=== PATIENT | female | born 1950 | race Caucasian/White ===

== ENCOUNTER → 2024-04-11 | Outpatient (CLI) | payer MEDICARE, MEDICAID, SELFPAY ==
[2024-04-11 16:59] LABS: Glucose Estimated Average 128 mg/dL (80-131); Hemoglobin A1C 6.1 % Hgb (4.8-6.0)
[2024-04-11 17:10] LABS: Anion Gap 11 (7-16); BUN/Creatinine Ratio 20 Ratio (12-20); Blood Urea Nitrogen 18 mg/dL (9-23); Calcium 9.7 mg/dL (8.3-10.6); Carbon Dioxide 27.9 mMol/L (20.0-31.0); Chloride 99 mMol/L (98-107); Creatinine (Component) 0.9 mg/dL (0.6-1.3); Glucose 127 mg/dL (74-106); Osmolality,Calculated 279 (275-295); Potassium 3.8 mMol/L (3.4-5.1); Sodium 138 mMol/L (136-145); eGFR > 60 See Note
== END | disposition home or self-care (01) ==
LOC: COPL 15:13
PROVIDERS: PCP Family Medicine; Referring Provider Family Medicine; Visit Provider Family Medicine
DX: E11.9 Type 2 diabetes mellitus without complications (principal); I10 Essential (primary) hypertension
CPT/HCPCS: 36415; 80048; 83036; 84443

== ENCOUNTER → 2024-08-01 | Outpatient (CLI) | payer OTHER, SELFPAY ==
--- NOTE | 2024-08-01 13:00 | XR_ITS ---
Examination: CT abdomen and pelvis without contrast. Coronal 3-D reconstructions. Sagittal 2-D reconstructions. Date and time of exam:August 01, 2024 1249 hours INDICATIONS: Infrarenal abdominal aortic aneurysm 4.3 cm mediolateral dimension on CT examination December 01, 2023 CTDI: vol (mGy): 13.7 DLP: (mGycm): 721 Technique: Axial images of the abdomen have been obtained, 3 mm slice thickness Intravenous contrast material has not been administered. Low dose protocols were performed. One or more of the following dose reduction techniques were used; automated exposure control, adjustment of the mA and/or KV according to patient size, use of iterative reconstruction technique. Findings: Liver irregular in contour no focal liver or splenic lesions No gallstones No pancreatic or adrenal mass No hydronephrosis Infrarenal abdominal aortic aneurysm, AP dimension 4.2 cm compared to 4.2 cm 12/01/2023 Transverse dimension 3.6 cm compared to 3.6 cm on the prior study No bowel obstruction Normal appendix No pelvic mass Bladder intact IMPRESSION: Stable infrarenal abdominal aortic aneurysm compared with December 01, 2023
== END | disposition home or self-care (01) ==
PROVIDERS: Referring Provider Student in an Organized Health Care Education/Training Program; Visit Provider Student in an Organized Health Care Education/Training Program
DX: I71.43 Infrarenal abdominal aortic aneurysm, without rupture (principal)
CPT/HCPCS: 74176

== ENCOUNTER → 2024-09-01 | Outpatient (CLI) | payer OTHER, MEDICAID, SELFPAY ==
[2024-09-01 13:02] LABS: Glucose Estimated Average 134 mg/dL (80-131); Hemoglobin A1C 6.3 % Hgb (4.8-6.0)
== END | disposition home or self-care (01) ==
LOC: COPL 11:34
PROVIDERS: PCP Family Medicine; Referring Provider Family Medicine; Visit Provider Family Medicine
DX: E11.65 Type 2 diabetes mellitus with hyperglycemia (principal)
CPT/HCPCS: 36415; 83036

== ENCOUNTER 2024-11-17 12:44 | Emergency (ER) | payer OTHER, SELFPAY ==
[2024-11-17 13:18] VITALS: BP 181/84; PULSE 100; RESP 24; TEMP 37.2; O2SAT 93
--- NOTE | 2024-11-17 13:29 | EDNOTE_ITS ---
ED Animal Bite RME/HPI General Chief Complaint: Animal Bite Stated Complaint: CAT BITE Time Seen by Provider: 11/17/24 12:52 Source: patient Arrival date/time: 11/17/24 12:44 73-year-old female with no known medical history presents to the emergency room with a chief complaint of redness warmth and swelling to her right hand after being bitten by her cat last night Mode of arrival: ambulatory Limitations: no limitations Related Data Home Medications ?Medication ?Instructions ?Recorded ?Confirmed metformin 1,000 mg tablet 1,000 mg PO QDAY 06/07/18 montelukast 10 mg tablet 10 mg PO QPM 06/07/18 pioglitazone 45 mg tablet 45 mg PO QDAY 06/07/1806/10 venlafaxine 150 mg 150 mg PO QDAY 06/07/1805/21 capsule,extended release 24 hr albuterol sulfate 90 mcg/actuation 2 puff inhalation Q 6H PRN 02/23/23 06/11/23 aerosol inhaler amlodipine 10 mg tablet 10 mg PO QDAY 02/23/2306/10 celecoxib 200 mg capsule 200 mg PO QDAY 02/23/2305/21 empagliflozin 25 mg tablet 25 mg PO QDAY 02/23/2305/21 (Jardiance) fluticasone fur. 200 mcg-umeclid 1 inh inhalation QDAY 02/23/23 06/11/23 62.5 mcg-vilant 25 mcg inhalat.powder (Trelegy Ellipta) solifenacin 5 mg tablet 5 mg PO QDAY 02/23/23 venlafaxine 150 mg tablet,extended 150 mg PO QDAY 08/1106/11/23 release 24 hr Previous Rx's ?Medication ?Instructions ?Recorded atorvastatin 20 mg tablet 20 mg PO HS #30 tabs 9 meloxicam 7.5 mg tablet 7.5 mg PO QDAY #45 tabs 05/21 05/15 amoxicillin 875 mg-potassium 1 tab PO BID 7 days #14 t abs 11/17/24 clavulanate 125 mg tablet Allergies Allergy/AdvReac Type Severity Reaction Status Date / Time latex Allergy Unknown Rash Verified 11/17/24 12:47 codeine AdvReac NAUSEATED/ Verified 11/17/24 12:47 VOMITING Review of Systems Review of Systems Systems Reviewed: All systems reviewed, normal except as documented Constitutional Constitutional: Reports system reviewed and no additional complaints, except as documented, Denies fatigue, Denies fever(s), Denies headache(s) and Denies weakness Eyes Eyes: Reports system reviewed and no additional complaints, except as documented, Denies blurry vision and Denies change in vision ENT Ears, Nose, Mouth, and Throat: Reports system reviewed and no additional complaints, except as documented, Denies otalgia, Denies headache(s), Denies nasal congestion, Denies throat swelling and Denies vertigo Cardiovascular Cardiovascular: Reports system reviewed and no additional complaints, except as documented, Denies chest pain, Denies dyspnea and Denies dyspnea on exertion Respiratory Respiratory: Reports system reviewed and no additional complaints, except as documented, Denies chest congestion, Denies cough, Denies dyspnea, Denies dyspnea on exertion and Denies wheezing Gastrointestinal Gastrointestinal: Reports system reviewed and no additional complaints, except as documented, Denies abdominal pain, Denies cramping, Denies nausea and Denies vomiting Genitourinary Genitourinary: Reports system reviewed and no additional complaints, except as documented Musculoskeletal Musculoskeletal: Reports system reviewed and no additional complaints, except as documented and Denies back pain Integumentary/Breasts Skin/Breast: Reports system reviewed and no additional complaints, except as documented, Reports erythema and Denies wounds Neurologic Neurologic: Reports system reviewed and no additional complaints, except as documented, Denies confusion, Denies headache(s), Denies lack of coordination, Denies vertigo and Denies weakness Psychiatric Psychiatric: Reports system reviewed and no additional complaints, except as documented, Denies anxiety, Denies confusion, Denies depression, Denies paranoia, Denies suicidal ideation and Denies tactile hallucinations Endocrine Endocrine: Reports system reviewed and no additional complaints, except as documented and Denies fatigue Hematologic/Lymphatic Hematologic/Lymphatic: Reports system reviewed and no additional complaints, except as documented and Denies lymphadenopathy Allergic/Immunologic Allergic/Immunologic: Reports system reviewed and no additional complaints, except as documented, Denies throat swelling, Denies urticaria and Denies wheezing ED Exam General Limitations: Present no limitations General appearance: Present alert and in no apparent distress Head Head exam: Present atraumatic Eye Eye exam: Present normal appearance, PERRL and EOMI ENT ENT exam: Present normal exam, normal oropharynx and mucous membranes moist Neck Neck exam: Present normal inspection, full ROM and trachea midline Chest Chest inspection: Present normal inspection and symmetric chest wall rise Respiratory Respiratory exam: Present normal lung sounds bilaterally Cardiovascular Cardiovascular exam: Present regular rate, normal rhythm and normal heart sounds Abdominal Exam Abdominal exam: Present soft and normal bowel sounds Extremities Exam Extremities exam: Present normal inspection and full ROM Expanded Upper Extremity Exam Shoulder exam: Present normal inspection Arm exam: Present normal inspection Elbow exam: Present normal inspection Forearm/Wrist exam: Present normal inspection Hand exam: Present tenderness, swelling and erythema Hand L/R back image: 2 1. Swelling, erythema, tenderness to the right. The findings are consistent with cellulitis secondary to a cat bite. The findings are mild to moderate Back Exam Back exam: Present normal inspection and full ROM Neurological Exam Neurological exam: Present alert, oriented X3 and CN II-XII intact Psychiatric Psychiatric exam: Present normal affect and normal mood Skin Skin exam: Present warm, dry, intact and normal color Course Quality Measures none Orders Category Date Time Status Ibuprofen Tab [Motrin Tab] Med 11/17/24 13:28 Discontinued 600 mg PO X1 ONE cefTRIAXone [Rocephin] 1,000 mg Med 11/17/24 13:26 Discontinued Lidocaine 1% 20 ml [Xylocaine 1% 20 ML] 2.1 ml IM X1 Vital Signs Vital signs: Vital Signs Temperature 99 F 11/17/24 13:18 Pulse Rate 100 11/17/24 13:18 Respiratory Rate 24 H 11/17/24 13:18 Blood Pressure 181/84 H 11/17/24 13:18 Pulse Oximetry (%) 93 L 11/17/24 13:18 Oxygen Delivery Method Room Air 11/17/24 13:18 Animal Bite MDM Narrative MDM Narrative:: 73-year-old female with no known medical history presents to the emergency room with a chief complaint of redness warmth and swelling to her right hand after being bitten by her cat last night Patient is hemodynamically stable and in no apparent distress. The patient is a be febrile not tachycardic not tachypneic Physical examination shows tenderness swelling and erythema to the right hand. The findings are consistent with mild cellulitis secondary to a cat bite. The patient is able to close her fist and is able to wiggle her fingers. There is active sensation in her hand and there is no swelling to the palm. A shot of antibiotics was given here at bedside and oral antibiotics are sent to the patient's pharmacy. Patient was educated to return to the emergency room for any evidence of worsening signs or symptoms Patient data External records reviewed:: [facility] previous records Clinical information provided by:: patient Social determinants that could affect healthcare access:: none Patient has the following chronic illnesses:: No chronic illness How is presenting disease/condition affected by chronic disease/condition?: no chronic disease Evaluation data The following diagnostics were reviewed and interpreted by me:: lab results and radiology exam(s) Lab and/or radiology exams considered but not ordered:: Labs and radiology exams considered in order Interpretation Summary: N/A Medications / Prescriptions Medications or Prescriptions considered but not ordered:: Medication given Medication administrations:: Medication Administration History Discontinued Medications Ceftriaxone Sodium 1,000 mg/ (Lidocaine HCl 2.1 ml) 0 mg IM X1 ONE Stop: 11/17/24 13:27 Last Admin: 11/17/24 14:04 Dose: 1,000 mg Documented By: Ibuprofen (Ibuprofen Tab 600 Mg Tablet) 600 mg PO X1 ONE Stop: 11/17/24 13:29 Last Admin: 11/17/24 14:03 Dose: 600 mg Documented By: Medication given Consultations Consultation(s) initiated? (list below): No Diagnosis Differential diagnosis animal bite: bite by animal, cat bite and dog bite Most likely diagnosis given after review of the tests above:: Cat bite Admission Indicated Admission indicated?: not indicated Admission Request Was there a request for admission?: No Disposition Plan Disposition Plan: Discharge Discharge Attestation Discharge Attestation: The patient and all family members were given an opportunity to ask questions and understood the discharge instructions. Discharge instructions specifically effects, indications for sooner follow up or return to the emergency department, and the expected course of current diagnosis. Patient condition: Stable Discharge Plan Plan Patient Disposition: HOME (Self Care) Discharge Disposition comment: Stable Prescriptions/Referrals Prescriptions/Med Rec: New amoxicillin-pot clavulanate 875-125 mg tablet 1 tab PO BID 7 Days Qty: 14 0RF No Action meloxicam 7.5 mg tablet 7.5 mg PO QDAY Qty: 45 3RF lidocaine HCl [Xylocaine] 10 mg/mL (1 %) solution 40 ml Infiltration X1 Qty: 40 0RF triamcinolone acetonide 40 mg/mL suspension 80 mg intra-articular X1 Qty: 2 0RF Jardiance 25 mg tablet 25 mg PO QDAY amlodipine 10 mg tablet 10 mg PO QDAY celecoxib 200 mg capsule 200 mg PO QDAY venlafaxine 150 mg tablet extended release 24hr 150 mg PO QDAY Trelegy Ellipta 200-62.5-25 mcg blister with device 1 inh inhalation QDAY albuterol sulfate 90 mcg/actuation HFA aerosol inhaler 2 puff inhalation Q6H PRN solifenacin 5 mg tablet 5 mg PO QDAY venlafaxine 150 mg Capsule,Extended Release 24hr 150 mg PO QDAY metformin 1,000 mg Tablet 1,000 mg PO QDAY montelukast 10 mg Tablet 10 mg PO QPM pioglitazone 45 mg Tablet 45 mg PO QDAY atorvastatin 20 mg Tablet 20 mg PO HS Qty: 30 0RF Problem List Clinical Impression: Cat bite Patient/Caregiver Discharge Instructions Education Materials: ED Animal Bite (General), ED Cat Bite Additional Instructions: Please follow-up with your primary care provider in the next 24 to 48 hours Antibiotics were given to you here at bedside and oral antibiotics are sent to your pharmacy. Please pick them up and take them as indicated For any evidence of worsening signs or symptoms return to the emergency room immediately Print Language: Citizen Of [place] Stand Alone Forms: Brisa Award Info., Patient Portal Info Letter PA/BUS PERSON DISHWASHER Supervising Physician PA/BUS PERSON DISHWASHER Supervising Physician: Dr. Bob
[2024-11-17] MEDS: IBUPROFEN TAB 600 MG TABLET PO (14:03)
[2024-11-17] MEDS: cefTRIAXone 1,000 MG, LIDOCAINE 1% 20 ML 2.1 ML IM (14:04)
== END 2024-11-17 14:39 | disposition home or self-care (01) ==
LOC: SERX 14:15
PROVIDERS: Emergency Provider Family Medicine; PCP Family Medicine
DX: S61.451A Open bite of right hand, initial encounter (principal); W55.01XA Bitten by cat, initial encounter
CPT/HCPCS: 96372; 99283; J0696; J3490; A9270